=== PATIENT | female | born 1955 | race Caucasian/White ===

== ENCOUNTER 2017-06-29 21:22 | Emergency (ER) | payer BC ==
[~2017-06-29] VITALS: Ht 162.6 cm; Wt 94.2 kg
[2017-06-29 21:33] VITALS: BP 119/67; PULSE 102; RESP 14; RESP 16; TEMP 99.2; O2SAT 97
[2017-06-29] MEDS ORDERED: ONDANSETRON HCL 4 MG/2 ML VIAL IV PUSH ONE (21:45)
[2017-06-29] MEDS ORDERED: SODIUM CHLOR 0.9% 1000 ML INJ 1,000 ML IV ONE (21:45)
--- NOTE | 2017-06-29 21:55 | PD ---
HPI Chief Complaint: GI Complaint Time Seen by Provider: 21:38 Travel History International Travel<30 days: No Contact w/Intl Traveler<30days: No Traveled to known affect area: No History of Present Illness HPI 61-year-old female complains of abdominal cramping nausea vomiting diarrhea body ache and headache. Patient states the symptoms started last night. Patient states that the headaches was aching headache has resolved completely. Patient denies any neck pain. Patient denies earache. Patient states that she has mild sore throat. Patient denies any coughing congestion. Patient states that abdominal pain mild diffuse intermittent cramping over the abdomen. Patient denies any pain radiation. Patient denies dysuria frequency. Patient denies any vaginal discharge or bleeding. Patient denies any fever chills. Patient has history of hypertension. Patient is on Maxzide and potassium. Patient has history of low potassium in the past. PFSH Social History Tobacco Use: No Allergies-Medications (Allergen,Severity, Reaction): Coded Allergies: No Known Allergies (Unverified , 06/29/17) Reported Meds & Prescriptions Reported Meds & Active Scripts Active Lomotil (Diphenoxylate-Atropine) 2.5-0.025 Mg Tab 1 Tab PO Q6H PRN Zofran Odt (Ondansetron Odt) 4 Mg Tab 4 Mg SL Q6HR PRN Reported Gabapentin 100 Mg Cap 100 Mg PO HS Simvastatin 20 Mg Tab 20 Mg PO DAILY Exemestane 25 Mg Tab 25 Mg PO DAILY Klor-Con M20 (Potassium Chloride Microencaps) 20 Meq Tab 20 Meq PO DAILY Levothyroxine (Levothyroxine Sodium) 50 Mcg Tab 50 Mcg PO DAILY Verapamil (Verapamil HCl) 120 Mg Tab 120 Mg PO DAILY Triamterene-Hydrochlorothiazide 37.5-25 Mg Tab 1 Tab DAILY Zegerid (Omeprazole-Sodium Bicarbonate) 20-1,100 Mg Cap 1 Cap PO DAILY Effexor (Venlafaxine HCl) 75 Mg Tab 75 Mg DAILY Review of Systems General / Constitutional: No: Fever Eyes: No: Visual changes HENT: Positive: Headaches Cardiovascular: No: Chest Pain or Discomfort Respiratory: No: Shortness of Breath Gastrointestinal: Positive: Nausea, Vomiting, Diarrhea, Abdominal Pain Genitourinary: No: Dysuria Musculoskeletal: No: Pain Skin: No Rash Neurologic: No: Weakness Psychiatric: No: Depression Endocrine: No: Polydipsia Hematologic/Lymphatic: No: Easy Bruising Physical Exam Narrative GENERAL: Well-nourished, well-developed patient. SKIN: Focused skin assessment warm/dry. HEAD: Normocephalic. EYES: No scleral icterus. No injection or drainage. NECK: Supple, trachea midline. No JVD or lymphadenopathy. CARDIOVASCULAR: Regular rate and rhythm without murmurs, gallops, or rubs. RESPIRATORY: Breath sounds equal bilaterally. No accessory muscle use. GASTROINTESTINAL: Abdomen soft, nondistended. Patient has mild tenderness diffuse over the abdomen. No rebound tenderness. No mass. MUSCULOSKELETAL: No cyanosis, or edema. BACK: Nontender without obvious deformity. No CVA tenderness. Neurologic exam normal. Data Data Last Documented VS Vital Signs Date Time Temp Pulse Resp B/P (MAP) Pulse Ox O2 Delivery O2 Flow Rate FiO2 06/30/17 02:20 86 18 128/82 (97) 97 06/30/17 01:10 Room Air 06/29/17 21:33 99.2 Orders Orders Complete Blood Count With Diff (06/29/17 21:43) Comprehensive Metabolic Panel (06/29/17 21:43) Lipase (06/29/17 21:43) Urinalysis - C+S If Indicated (06/29/17 21:43) Influenzae A/B Antigen (06/29/17 21:43) Iv Access Insert/Monitor (06/29/17 21:43) Ecg Monitoring (06/29/17 21:43) Oximetry (06/29/17 21:43) Sodium Chlor 0.9% 1000 Ml Inj (Ns 1000 M (06/29/17 21:45) Ondansetron Inj (Zofran Inj) (06/29/17 21:45) Ketorolac Inj (Toradol Inj) (06/29/17 22:00) Potassium Chlor 20 Meq Premix (Kcl 20 Me (06/30/17 00:15) Potassium Chloride (Kcl) (06/30/17 00:15) Ed Discharge Order (06/30/17 00:43) Labs Laboratory Tests Test 06/29/17 22:16 06/29/17 22:20 Urine Color YELLOW Urine Turbidity CLEAR Urine pH GREATER/EQUAL 9.0 Urine Specific [place] 1.010 Urine Protein 30 mg/dL Urine Glucose (UA) NEG mg/dL Urine Ketones TRACE mg/dL Urine Occult Blood NEG Urine Nitrite NEG Urine Bilirubin SMALL Urine Urobilinogen 1.0 MG/DL Urine Leukocyte Esterase NEG Urine RBC 0-3 /hpf Urine WBC 3-5 /hpf Urine Mucus MOD /lpf Microscopic Urinalysis Comment CULT NOT INDICATED White Blood Count 7.6 TH/MM3 Red Blood Count 4.51 MIL/MM3 Hemoglobin 13.1 GM/DL Hematocrit 38.2 % Mean Corpuscular Volume 84.6 FL Mean Corpuscular Hemoglobin 29.0 PG Mean Corpuscular Hemoglobin Concent 34.3 % Red Cell Distribution Width 13.1 % Platelet Count 246 TH/MM3 Mean Platelet Volume 8.0 FL Neutrophils (%) (Auto) 81.3 % Lymphocytes (%) (Auto) 10.2 % Monocytes (%) (Auto) 6.4 % Eosinophils (%) (Auto) 0.0 % Basophils (%) (Auto) 2.1 % Neutrophils # (Auto) 6.1 TH/MM3 Lymphocytes # (Auto) 0.8 TH/MM3 Monocytes # (Auto) 0.5 TH/MM3 Eosinophils # (Auto) 0.0 TH/MM3 Basophils # (Auto) 0.2 TH/MM3 CBC Comment DIFF FINAL Differential Comment Blood Urea Nitrogen 21 MG/DL Creatinine 0.82 MG/DL Random Glucose 111 MG/DL Total Protein 7.4 GM/DL Albumin 3.5 GM/DL Calcium Level 9.1 MG/DL Alkaline Phosphatase 92 U/L Aspartate Amino Transf (AST/SGOT) 17 U/L Alanine Aminotransferase (ALT/SGPT) 27 U/L Total Bilirubin 0.8 MG/DL Sodium Level 139 MEQ/L Potassium Level 2.8 MEQ/L Chloride Level 103 MEQ/L Carbon Dioxide Level 25.2 MEQ/L Anion Gap 11 MEQ/L Estimat Glomerular Filtration Rate 70 ML/MIN Lipase 96 U/L [facility] Medical Decision Making Medical Screen Exam Complete: Yes Emergency Medical Condition: Yes Interpretation(s) 12:09 AM. CBC within normal limits. Potassium 2.8. BUN 21. UA is negative. Differential Diagnosis Differential diagnoses including viral syndrome, gastroenteritis, dehydration, electrolyte imbalance. Narrative Course 61-year-old female with headache, body ache, abdominal cramping, nausea vomiting diarrhea. Normal saline solution 1 L IV bolus. Zofran 4 mg IV. Toradol 30 mg IV. KCl 40 mEq p.o. given. KCl 20 mEq IV given. Diagnosis Primary Impression: Gastroenteritis Additional Impression: Hypokalemia Patient Instructions: General Instructions Additional Instructions: Clear fluid tonight and advance diet tomorrow. Take medication as needed for nausea vomiting diarrhea. [id number] Imodium as needed for diarrhea. Tylenol for aching pain. Follow-up with personal physician. Return to persistent problem or worse. Take potassium as directed. Med/Other Pt SpecificInfo: Prescription(s) given Scripts Diphenoxylate-Atropine (Lomotil) 2.5-0.025 Mg Tab 1 TAB PO Q6H Y for DIARRHEA, #10 TAB 0 Refills Prov: Micah Brock MD 06/30/17 Ondansetron Odt (Zofran Odt) 4 Mg Tab 4 MG SL Q6HR Y for Nausea/Vomiting, #10 TAB 0 Refills Prov: Micah Brock MD 06/30/17 Disposition: 01 DISCHARGE HOME Condition: Stable Micah Brock MD June 29, 2017 21:55
[2017-06-29 22:00] VITALS: PULSE 81; RESP 16; O2SAT 99
[2017-06-29] MEDS ORDERED: KETOROLAC TROMETHAMINE 30 MG/ML (IVP) VIAL IV PUSH ONE (22:00)
[2017-06-29 22:36] LABS: AUTOMATED NEUTROPHIL # 6.1 TH/MM3 (1.8-7.7); BASOPHIL # 0.2 TH/MM3 (0-0.2); BASOPHIL % 2.1 % (0.0-2.0); HEMATOCRIT 38.2 % (35.0-46.0); HEMOGLOBIN 13.1 GM/DL (11.6-15.3); LYMPH % 10.2 % (9.0-44.0); LYMPHOCYTE # 0.8 TH/MM3 (1.0-4.8); MEAN CELL VOLUME 84.6 FL (80.0-100.0); MEAN CORPUSCULAR HGB CONC 34.3 % (32.0-36.0); MONO % 6.4 % (0.0-8.0); MONOCYTE # 0.5 TH/MM3 (0-0.9); NEUT % 81.3 % (16.0-70.0); PLATELET COUNT 246 TH/MM3 (150-450); RED BLOOD COUNT 4.51 MIL/MM3 (4.00-5.30); RED CELL DISTRIBUTION WIDTH 13.1 % (11.6-17.2); WHITE BLOOD COUNT 7.6 TH/MM3 (4.0-11.0)
[2017-06-29 22:41] LABS: BILIRUBIN, URINE SMALL (NEG); BLOOD, URINE NEG (NEG); GLUCOSE,URINE NEG (NEG); KETONE, URINE TRACE mg/dL (NEG); NITRITE,URINE NEG (NEG); PH, URINE GREATER/EQUAL 9.0 (5.0-8.5); URINE COLOR YELLOW (YELLW/STRAW); URINE LEUKOCYTE ESTERASE NEG (NEG)
[2017-06-29 22:53] LABS: MUCUS URINE MOD /lpf (OCC); RBC, URINE 0-3 /hpf (0-3)
[2017-06-29 23:00] VITALS: BP 121/67; PULSE 96; RESP 16; O2SAT 99
[2017-06-29] MEDS ORDERED: EXEM25TA PO (23:17)
[2017-06-29] MEDS ORDERED: GABA100C4 PO (23:17)
[2017-06-29] MEDS ORDERED: TRIA37.5 (23:17)
[2017-06-29] MEDS ORDERED: ZEGE20CA4 PO (23:17)
[2017-06-29] MEDS ORDERED: LEVO50TA4 PO (23:17)
[2017-06-29] MEDS ORDERED: KLOR20TA3 PO (23:17)
[2017-06-29] MEDS ORDERED: SIMV20TA PO (23:17)
[2017-06-29] MEDS ORDERED: VERA120T3 PO (23:17)
[2017-06-29] MEDS ORDERED: VENL75TA (23:17)
[2017-06-29 23:27] LABS: ALBUMIN 3.5 GM/DL (3.4-5.0); ALKALINE PHOSPHATASE 92 U/L (45-117); ALT (GPT) 27 U/L (10-53); AST (GOT) 17 U/L (15-37); BICARBONATE 25.2 MEQ/L (21.0-32.0); BLOOD UREA NITROGEN 21 MG/DL (7-18); CALCIUM 9.1 MG/DL (8.5-10.1); CHLORIDE 103 MEQ/L (98-107); CREATININE 0.82 MG/DL (0.50-1.00); GLOMERULAR FILTRATION RATE 70 ML/MIN (>89); GLUCOSE,RANDOM 111 MG/DL (74-106); SODIUM (NA) 139 MEQ/L (136-145); TOTAL BILIRUBIN ADULT 0.8 MG/DL (0.2-1.0); TOTAL PROTEIN 7.4 GM/DL (6.4-8.2)
[2017-06-30 00:01] VITALS: BP 117/72; PULSE 76; RESP 16; O2SAT 99
[2017-06-30] MEDS ORDERED: POTASSIUM CHLOR 20 MEQ PREMIX 100 ML IV ONE (00:15)
[2017-06-30] MEDS ORDERED: POTASSIUM CHLORIDE 20 MEQ CONTROLLED RELEASE TAB PO ONE (00:15)
[2017-06-30] MEDS ORDERED: LOMO2.5T PO (00:45)
[2017-06-30] MEDS ORDERED: ZOFR4TAB3 SL (00:45)
[2017-06-30 01:10] VITALS: BP 136/80; PULSE 82; RESP 16; O2SAT 98
[2017-06-30 02:20] VITALS: BP 128/82
== END 2017-06-30 02:29 | disposition home or self-care (01) ==
LOC: PHED 21:22
DX: K52.9 Noninfective gastroenteritis and colitis, unspecified (principal); E87.6 Hypokalemia; I10 Essential (primary) hypertension
CPT/HCPCS: 80053; 81001; 83690; 85025; 87804; 96361; 96365; 96366; 96375; 99284; J1885; J2405; J3480; J7030